=== PATIENT | male | born 1995 | race Caucasian/White ===

== ENCOUNTER 2016-08-12 14:22 | Emergency (ER) | payer OTHER ==
[~2016-08-12] VITALS: Ht 180.3 cm; Wt 99.1 kg
[2016-08-12 14:25] VITALS: BP 123/83
[2016-08-12] MEDS ORDERED: IBU800 M1 PO (14:27)
[2016-08-12] MEDS ORDERED: TYLENOL 325MG325 MG PO (14:27)
[2016-08-12] MEDS ORDERED: NORCO 325 MG-51 TAB PO (14:27)
[2016-08-12 15:33] LABS: INFLUENZA B NEGATIVE
[2016-08-12] MEDS ORDERED: AMOXICILLIN/CLA1 TA1 PO (16:22)
[2016-08-12] MEDS ORDERED: ZITHROMAX Z PA250 MG PO (16:22)
[2016-08-12 17:01] VITALS: PULSE 98; TEMP 99.5
== END 2016-08-12 17:14 | disposition home or self-care (01) ==
LOC: COL.ER 14:22
PROVIDERS: Nurse Practitioner
DX: J18.9 Pneumonia, unspecified organism (principal); J03.90 Acute tonsillitis, unspecified
CPT/HCPCS: J0696; J2930

== ENCOUNTER 2017-01-03 22:24 | Emergency (ER) | payer OTHER ==
[~2017-01-03] VITALS: Ht 180.3 cm; Wt 93.2 kg
[~2017-01-03 22:24] MED LIST: AMOXICILLIN/CLA1 TA1 PO; IBU800 M1 PO; NORCO 325 MG-51 TAB PO; TYLENOL 325MG325 MG PO; ZITHROMAX Z PA250 MG PO
[2017-01-03 22:26] VITALS: BP 137/98; TEMP 98.7
[2017-01-04] MEDS ORDERED: PERCOCET 325 MG1 TA2 PO (00:02)
[2017-01-04] MEDS ORDERED: CEPHALEXIN500 M1 PO (00:02)
[2017-01-04 00:37] VITALS: PULSE 98
== END 2017-01-04 00:39 | disposition home or self-care (01) ==
LOC: COL.ER 22:24
DX: S82.845A Nondisplaced bimalleolar fracture of left lower leg, initial encounter for closed fracture (principal); S50.812A Abrasion of left forearm, initial encounter; S91.032A Puncture wound without foreign body, left ankle, initial encounter; V28.4XXA Motorcycle driver injured in noncollision transport accident in traffic accident, initial encounter; Y92.488 Other paved roadways as the place of occurrence of the external cause
CPT/HCPCS: J1170; J2270; J2405; J7030